=== PATIENT | male | born 1965 | race Caucasian/White ===

== ENCOUNTER 2017-09-27 13:56 | Emergency (ER) | payer BC, OTHER ==
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
--- NOTE | 2017-09-27 15:09 | RAD ---
PROCEDURE: Cervical Spine Radiographs. HISTORY: Pain. COMPARISON: None. FINDINGS: BONES: Anterior osteophyte at C2-3, C3-4 and C5-6. Alignment maintained. No fracture. Dens Intact. DISC SPACES: Normal. SOFT TISSUES: Normal. No prevertebral soft tissue swelling. OTHER FINDINGS: None. IMPRESSION: No acute fracture. Multilevel degenerative changes
[2017-09-27 15:57] VITALS: BP 147/89; PULSE 62; RESP 20; TEMP 98.2
[2017-09-27 22:46] VITALS: O2SAT 99
== END 2017-09-27 16:11 | disposition home or self-care (01) ==
LOC: C.ER 13:56
DX: S16.1XXA Strain of muscle, fascia and tendon at neck level, initial encounter (principal); S39.012A Strain of muscle, fascia and tendon of lower back, initial encounter; V89.2XXA Person injured in unspecified motor-vehicle accident, traffic, initial encounter; Y92.410 Unspecified street and highway as the place of occurrence of the external cause